=== PATIENT | female | born 2000 | race African-American/Black ===

== ENCOUNTER 2021-03-16 16:13 | Day surgery (SDC) | payer OTHER ==
[2021-03-16 17:08] VITALS: BMI 53.0
[2021-03-16 20:20] LABS: Creatinine, Urine 310.62 mg/dL (47-110)
[2021-03-16 20:43] LABS: #Eosinphils 0.2 10x3/uL (0.0-0.5); #Monocytes 0.8 10x3/uL (0.0-1.1); %Basophils 0.2 % (0.0-2.0); %Eosinophils 2.2 % (0.0-6.0); %Lymphocytes 20.1 % (18.0-47.0); %Monocytes 9.2 % (0.0-10.0); %Neutrophils 67.5 % (40.0-75.0); Hemoglobin 11.4 g/dL (12.0-15.5); Mean Corpuscular HGB CONC 32.2 g/dL (32.0-36.0); Mean Corpuscular Hemoglobin 27.2 pg (27.0-33.0); Mean Corpuscular Volume 84.5 fl (81.6-98.3); Mean Platelet Volume 11.1 fl (7.4-10.4); Platelet Count 183 10x3/uL (150-450); RBC Distribution Width 14.6 % (11.5-14.5); Red Blood Cell (RBC) Count 4.19 10x6/uL (3.90-5.03); White Blood Cell (WBC) Count 8.9 10x3/uL (3.5-10.5)
[2021-03-16 20:57] LABS: ALT (SGPT) 7 U/L (8-55); AST (SGOT) 11 U/L (5-34); Alkaline Phosphatase 107 U/L (40-100); Anion Gap 13 mmol/L (10-20); BUN (Urea Nitrogen) 9 mg/dL (7.0-18.7); Bilirubin, Total 0.2 mg/dL (0.2-1.2); Calc. Creatinine Clearance 320 mL/min (70-130); Carbon Dioxide 21 mmol/L (22-29); Chloride 106 mmol/L (98-107); Globulin 3.7 g/dL (2.4-3.5); Glucose 89 mg/dL (70-105); Potassium 3.8 mmol/L (3.5-5.1); Protein, Total 6.7 g/dL (6.0-8.3); Sodium 136 mmol/L (136-145)
[2021-03-16 21:27] LABS: Calcium 9.8 mg/dL (7.8-10.44)
== END 2021-03-16 21:07 | disposition home or self-care (01) ==
LOC: CSHLD/OP 16:13
PROVIDERS: ATTEND Obstetrics & Gynecology
DX: Z01.89 Encounter for other specified special examinations (principal); Z3A.00 Weeks of gestation of pregnancy not specified
CPT/HCPCS: 76819; 80053; 82570; 84156; 85025; 99283

== ENCOUNTER 2022-10-21 23:40 | Inpatient (IN) | payer OTHER ==
[~2022-10-21 23:40] MED LIST: Bupivacaine 0.25% HCL 30 ML VIAL ONE; Bupivacaine HCl 0.5%/Epinephrine 1:200,000/PF 30 ml Vial ONE; Bupivacaine/Epinephrine 0.25% 30 ML VIAL ONE; Lidocaine 2% MPF 10 ML AMP (For Epidural Use) ONE; ePHEDrine Sulfate 50 MG/10 ML VIAL ONE
[2022-10-22] MEDS ORDERED: Butorphanol Tartrate 1 MG/ML VIAL SLOW IVP PRN
[2022-10-22] MEDS ORDERED: Misoprostol 200 MCG TAB PR PRN
[2022-10-22] MEDS ORDERED: NS w/ Oxytocin 30 units 500 ML IV SCH
[2022-10-22] MEDS ORDERED: Lactated Ringer's 1,000 ML IV SCH
[2022-10-22] MEDS ORDERED: Acetaminophen 500 MG TAB PO PRN
[2022-10-22] MEDS ORDERED: Carboprost 250 MCG/ML AMP IM PRN
[2022-10-22] MEDS ORDERED: Diphenoxylate HCl/Atropine Tablet PO PRN
[2022-10-22] MEDS ORDERED: HYDROcodone/Acetaminophen 5/325 mg Tablet PO PRN ×2 (00:09→08:12)
[2022-10-22] MEDS ORDERED: Lidocaine 1% (PF) 30 ML VIAL SC PRN (00:09)
[2022-10-22] MEDS ORDERED: Ibuprofen 800 MG TAB PO PRN (00:09)
[2022-10-22] MEDS ORDERED: Penicillin G Potassium 5 MILL.UNITS in Sodium Chloride 0.9% 100 ML IVPB SCH (00:15)
[2022-10-22] MEDS ORDERED: Penicillin G Potassium 5 MILL.UNITS VIAL ONE (00:17)
[2022-10-22 00:25] VITALS: BMI 51.8
[2022-10-22 01:15] LABS: #Eosinphils 0.1 10x3/uL (0.0-0.5); #Monocytes 0.9 10x3/uL (0.0-1.1); %Basophils 0.2 % (0.0-2.0); %Eosinophils 1.5 % (0.0-6.0); %Lymphocytes 21.7 % (18.0-47.0); %Monocytes 10.3 % (0.0-10.0); %Neutrophils 65.5 % (40.0-75.0); Hemoglobin 10.9 g/dL (12.0-15.5); Mean Corpuscular HGB CONC 32.3 g/dL (32.0-36.0); Mean Corpuscular Hemoglobin 26.9 pg (27.0-33.0); Mean Corpuscular Volume 83.2 fl (81.6-98.3); Mean Platelet Volume 11.2 fl (7.4-10.4); Platelet Count 191 10x3/uL (150-450); RBC Distribution Width 15.6 % (11.5-14.5); Red Blood Cell (RBC) Count 4.05 10x6/uL (3.90-5.03); White Blood Cell (WBC) Count 9.2 10x3/uL (3.5-10.5)
[2022-10-22] MEDS ORDERED: Fentanyl 2 mcg/Bup 0.1% Cadd 100 ML ONE (01:21)
[2022-10-22 01:29] LABS: ALT (SGPT) Less than 6 U/L (8-55); AST (SGOT) 12 U/L (5-34); Albumin 3.2 g/dL (3.5-5.0); Alkaline Phosphatase 208 U/L (40-110); Anion Gap 15 mmol/L (10-20); BUN (Urea Nitrogen) 10 mg/dL (7.0-18.7); Bilirubin, Total 0.3 mg/dL (0.2-1.2); Calc. Creatinine Clearance 283 mL/min (70-130); Carbon Dioxide 20 mmol/L (22-29); Chloride 105 mmol/L (98-107); Estimated GFR 127; Globulin 3.5 g/dL (2.4-3.5); Glucose 92 mg/dL (70-105); Potassium 3.9 mmol/L (3.5-5.1); Protein, Total 6.7 g/dL (6.0-8.3); Sodium 136 mmol/L (136-145)
[2022-10-22 01:52] LABS: Syphilis Antibody Nonreactive (Nonreactive); Syphilis Antibody Index 0.05 S/CO (<1.00 Non-Reactive)
[2022-10-22 01:53] LABS: Hep B Surf Ag - L&D Non-Reactive S/CO (NonReactive)
[2022-10-22] MEDS ORDERED: Lactated Ringer's 500 ML IV PRN (02:21)
[2022-10-22] MEDS ORDERED: Ondansetron PF 4 MG/2 ML Vial IVP PRN ×3 (02:21→07:59)
[2022-10-22] MEDS ORDERED: Naloxone HCl 0.4 mg/ml Vial IVP PRN ×4 (02:21→07:59)
[2022-10-22] MEDS ORDERED: Moisturizing Cream (Eucerin) 113 GM JAR TOP PRN ×2 (02:21→07:59)
[2022-10-22] MEDS ORDERED: ePHEDrine Sulfate 50 MG/10 ML VIAL SLOW IVP PRN (02:21)
[2022-10-22] MEDS ORDERED: Promethazine HCl 25 MG/ML VIAL IM PRN ×3 (02:21→07:59)
[2022-10-22] MEDS ORDERED: diphenhydrAMINE 50 MG/ML VIAL IVP PRN ×2 (02:21→07:59)
[2022-10-22] MEDS ORDERED: Acetaminophen 325 MG TAB PO PRN (02:21)
[2022-10-22] MEDS ORDERED: Fentanyl 2 mcg/Bupivacaine 0.1% Cassette 100 ML EPIDURAL SCH (02:30)
[2022-10-22] MEDS ORDERED: Communication Order-Pharmacy FS SCH ×2 (02:30→08:00)
[2022-10-22] MEDS ORDERED: Penicillin G 2.5 MILL.units 2.5 MILL.UNITS in Premix Bag 1 BAG IVPB SCH (04:15)
[2022-10-22] MEDS ORDERED: Famotidine/PF 20 mg/2ml Vial SLOW IVP PRN (05:32)
[2022-10-22] MEDS ORDERED: Bicitra 30 ML UDCUP PO PRN (05:32)
[2022-10-22] MEDS ORDERED: CEFAZOLIN 2 GM VIAL ONE (05:35)
[2022-10-22] MEDS ORDERED: Azithromycin 500 MG VIAL ONE (05:35)
[2022-10-22] MEDS ORDERED: Azithromycin 500 MG in Sodium Chloride 0.9% 250 ML 250 ML IVPB SCH (05:45)
[2022-10-22] MEDS ORDERED: CEFAZOLIN 2 GM in Sodium Chloride 0.9% 100 ML IVPB SCH (05:45)
[2022-10-22] MEDS ORDERED: Morphine PF 10 MG/10 ML VIAL ONE (05:55)
[2022-10-22] MEDS ORDERED: PHENYLEPHRINE-NS 100 MCG/ML 10 ML SYRINGE ONE (05:55)
[2022-10-22] MEDS ORDERED: Ondansetron PF 4 MG/2 ML Vial ONE (05:55)
[2022-10-22] MEDS ORDERED: Oxytocin 10 UNITS/ML VIAL ONE (05:55)
[2022-10-22] MEDS ORDERED: Dexamethasone 4 mg/ml Vial ONE (05:55)
[2022-10-22 06:44] LABS: RapidComm Collect By CBN
[2022-10-22 06:46] LABS: RapidComm Collect By CBN; pH (Cord, venous) 7.289 (7.250-7.350)
[2022-10-22] MEDS ORDERED: Ketorolac Tromethamine 30 MG/ML VIAL IVP PRN (07:59)
[2022-10-22] MEDS ORDERED: Naloxone HCl 0.4 mg/ml Vial IV PRN (07:59)
[2022-10-22] MEDS ORDERED: Fentanyl 100 MCG/2 ML VIAL SLOW IVP PRN (07:59)
[2022-10-22] MEDS ORDERED: Ondansetron HCl/PF 4 MG/2 ML Vial IVP PRN (07:59)
[2022-10-22] MEDS ORDERED: Promethazine HCl 25 MG SUPP PR PRN (07:59)
[2022-10-22] MEDS ORDERED: Meperidine HCl/PF 25 MG/ML VIAL SLOW IVP PRN (07:59)
[2022-10-22] MEDS ORDERED: Ketorolac Tromethamine 30 MG/ML VIAL IVP SCH (08:00)
[2022-10-22] MEDS ORDERED: hydrALAZINE 20 MG/ML VIAL SLOW IVP PRN ×2 (08:12)
[2022-10-22] MEDS ORDERED: Boostrix 0.5 ML (Tdap) VIAL (>/=7 yrs of age) IM ONE (08:12)
[2022-10-22 10:52] LABS: Bilirubin Neg (Negative); Blood, Urine 250 (Negative); Clarity Slightly Cloudy (Clear); Glucose, Urine (Dipstick) Normal (Negative); Ketone, Urine 5 mg/dL (Negative); Leukocyte 100 (Negative); Nitrite Negative (Negative); Protein, Urine (Dipstick) Negative (Neg-Trace); Specific Gravity, Urine 1.005 (1.005-1.030); Urobilinogen Normal mg/dL (Less than 2)
[2022-10-22 11:00] LABS: Amphetamine Not Detected (NotDetected); Barbiturates Screen Not Detected (NotDetected); Benzodiazepine Screen Not Detected (NotDetected); Cocaine Metabolite Screen Not Detected (NotDetected); Methadone Not Detected (NotDetected); Methamphetamine Not Detected (NotDetected); Opiate Screen Detected (NotDetected); Oxycodone Screen Not Detected (NotDetected); Phencyclidine (PCP) Not Detected (NotDetected); THC/Cannabinoid Screen Not Detected (NotDetected); Tricyclic Screen Not Detected (NotDetected)
[2022-10-22 11:06] LABS: Bacteria/HPF Rare-Few HPF (None Seen); Squamous Epithelial 0-3 HPF (0-3)
[2022-10-22 13:27] LABS: HIV (1/2) Antibody/Antigen Non-Reactive (NonReactive); HIV 1/2 INDEX 0.15 S/CO (<1.00)
[2022-10-22] MEDS: Ibuprofen 800 MG TAB PO SCH ×2 (14:19→23:00)
[2022-10-22 23:05] LABS: Hep C IgG Ab Non-Reactive (NonReactive)
[2022-10-22 23:20] LABS: Hep C Index 0.11 S/CO (0-0.79)
[2022-10-23 04:18] LABS: Hemoglobin 9.3 g/dL (12.0-15.5); Mean Corpuscular HGB CONC 31.7 g/dL (32.0-36.0); Mean Corpuscular Hemoglobin 26.7 pg (27.0-33.0); Mean Corpuscular Volume 84.2 fl (81.6-98.3); Platelet Count 172 10x3/uL (150-450); RBC Distribution Width 15.3 % (11.5-14.5); Red Blood Cell (RBC) Count 3.48 10x6/uL (3.90-5.03); White Blood Cell (WBC) Count 14.3 10x3/uL (3.5-10.5)
[2022-10-23] MEDS: Ibuprofen 800 MG TAB PO SCH ×3 (05:46→22:20)
[2022-10-24] MEDS: Ibuprofen 800 MG TAB PO SCH ×3 (06:01→21:30)
[2022-10-24] MEDS: HYDROcodone/Acetaminophen 5/325 mg Tablet PO PRN (16:31)
[2022-10-25] MEDS: Ibuprofen 800 MG TAB PO SCH ×2 (05:04→13:41)
[2022-10-25] MEDS: HYDROcodone/Acetaminophen 5/325 mg Tablet PO PRN (05:17)
[2022-10-25 07:34] VITALS: BP 117/58; TEMP 98.5
== END 2022-10-25 17:20 | disposition home or self-care (01) | DRG 788 ==
LOC: UNDOADMIN 23:40 → CSHLD 23:40 → CSHPP 10-22 09:10
PROVIDERS: ADMIT Obstetrics & Gynecology; ATTEND Obstetrics & Gynecology
PROC: 10D00Z1 Extraction of Products of Conception, Low, Open Approach (ICD-10-PCS; principal; 2022-10-22)
DX: O99.214 Obesity complicating childbirth (principal); Z3A.39 39 weeks gestation of pregnancy; E66.9 Obesity, unspecified; O77.0 Labor and delivery complicated by meconium in amniotic fluid; O76 Abnormality in fetal heart rate and rhythm complicating labor and delivery; Z37.0 Single live birth
CPT/HCPCS: 36415; 51702; 76815; 80053; 80306; 81001; 82805; 85027; 86762; 86780; 86803; 86850; 86870; 86900; 86901; 87340; 87389; J1100; J1885; J2274; J2405; J2590; S0020

== ENCOUNTER 2024-02-10 12:59 | Inpatient (IN) | payer OTHER ==
[2024-02-10] MEDS ORDERED: Ondansetron PF 4 MG/2 ML Vial IVP PRN ×3 (13:12→15:12)
[2024-02-10] MEDS ORDERED: hydrALAZINE 20 MG/ML VIAL SLOW IVP PRN ×2 (13:12→18:06)
[2024-02-10] MEDS ORDERED: Promethazine HCl 25 MG/ML VIAL IM PRN ×2 (13:12→15:12)
[2024-02-10] MEDS ORDERED: Misoprostol 200 MCG TAB PR PRN ×2 (13:13→18:06)
[2024-02-10] MEDS ORDERED: Tranexamic Acid 1,000 MG/10 ML VIAL IVP PRN (13:13)
[2024-02-10] MEDS ORDERED: Oxytocin 30 units/NS 500 ML 500 ML IV SCH ×2 (13:15→18:06)
[2024-02-10] MEDS ORDERED: Acetaminophen 500 MG TAB PO PRN (13:32)
[2024-02-10] MEDS ORDERED: Carboprost 250 MCG/ML AMP IM PRN (13:32)
[2024-02-10] MEDS ORDERED: Bicitra 30 ML UDCUP PO PRN (13:32)
[2024-02-10] MEDS ORDERED: Diphenoxylate HCl/Atropine Tablet PO PRN (13:32)
[2024-02-10 14:06] VITALS: BMI 55.2
[2024-02-10] MEDS: Lactated Ringer's 1,000 ML IV SCH (14:41)
[2024-02-10] MEDS: CEFAZOLIN 3 GM, Admixture Fee 1 EACH in Sodium Chloride 0.9% 100 ML IVPB SCH (14:41)
[2024-02-10] MEDS: Famotidine/PF 20 mg/2ml Vial SLOW IVP PRN (14:41)
[2024-02-10 14:42] LABS: Hematocrit 37.4 % (34.9-44.5); Hemoglobin 12.5 g/dL (12.0-15.5); Mean Corpuscular HGB CONC 33.4 g/dL (32.0-36.0); Mean Corpuscular Hemoglobin 28.2 pg (27.0-33.0); Mean Corpuscular Volume 84.2 fL (81.6-98.3); Mean Platelet Volume 11.3 fL (7.4-10.4); Platelet Count 177 10x3/uL (150-450); RBC Distribution Width 15.1 % (11.5-14.5); Red Blood Cell (RBC) Count 4.44 10x6/uL (3.90-5.03)
[2024-02-10 14:50] LABS: ALT (SGPT) Less than 7 U/L (8-55); AST (SGOT) 12 U/L (5-34); Albumin 2.6 g/dL (3.5-5.0); Alkaline Phosphatase 178 U/L (40-110); Anion Gap 13 mmol/L (10-20); BUN (Urea Nitrogen) 10 mg/dL (7.0-18.7); Bilirubin, Total 0.3 mg/dL (0.2-1.2); Calc. Creatinine Clearance 252 mL/min (70-130); Calcium 9.6 mg/dL (7.8-10.44); Carbon Dioxide 22 mmol/L (22-29); Chloride 106 mmol/L (98-107); Estimated GFR 115; Globulin 4.4 g/dL (2.4-3.5); Glucose 92 mg/dL (70-105); Potassium 4.4 mmol/L (3.5-5.1); Sodium 137 mmol/L (136-145)
[2024-02-10 15:06] LABS: Amphetamine Not Detected (NotDetected); Barbiturates Screen Not Detected (NotDetected); Benzodiazepine Screen Not Detected (NotDetected); Cocaine Metabolite Screen Not Detected (NotDetected); Methadone Not Detected (NotDetected); Methamphetamine Not Detected (NotDetected); Opiate Screen Not Detected (NotDetected); Oxycodone Screen Not Detected (NotDetected); Phencyclidine (PCP) Not Detected (NotDetected); THC/Cannabinoid Screen Not Detected (NotDetected); Tricyclic Screen Not Detected (NotDetected)
[2024-02-10 15:08] LABS: HBsAg Index 0.17 S/CO (0-0.99); HIV (1/2) Antibody/Antigen Non-Reactive (NonReactive); HIV 1/2 INDEX 0.07 S/CO (<1.00); Hep B Surf Ag - L&D Non-Reactive S/CO (NonReactive); Syphilis Antibody Nonreactive (Nonreactive); Syphilis Antibody Index 0.08 S/CO (<1.00 Non-Reactive)
[2024-02-10] MEDS ORDERED: Morphine 4 MG/ML VIAL SLOW IVP PRN (15:12)
[2024-02-10] MEDS ORDERED: Naloxone HCl 0.4 mg/ml Vial IV PRN (15:12)
[2024-02-10] MEDS ORDERED: Meperidine HCl/PF 25 MG (1 mL) VIAL SLOW IVP PRN (15:12)
[2024-02-10] MEDS ORDERED: fentaNYL 50 mcg/mL 1 mL Vial SLOW IVP PRN (15:12)
[2024-02-10] MEDS ORDERED: Naloxone HCl 0.4 mg/ml Vial IVP PRN ×2 (15:12)
[2024-02-10] MEDS ORDERED: diphenhydrAMINE 50 MG/ML VIAL IVP PRN (15:12)
[2024-02-10] MEDS ORDERED: Moisturizing Cream (Eucerin) 113 GM JAR TOP PRN (15:12)
[2024-02-10] MEDS ORDERED: Ketorolac Tromethamine 30 MG (1 mL) VIAL IVP SCH (15:15)
[2024-02-10] MEDS ORDERED: Communication Order-Pharmacy FS SCH (15:15)
[2024-02-10 15:22] LABS: Creatinine, Urine 224.93 mg/dL (47-110)
[2024-02-10] MEDS: Dexamethasone 10 MG/ML VIAL ONE (18:04)
[2024-02-10] MEDS: Ketorolac Tromethamine 30 MG (1 mL) VIAL ONE (18:04)
[2024-02-10] MEDS: ePHEDrine Sulfate 50 MG/10 ML VIAL ONE (18:04)
[2024-02-10] MEDS: Glycopyrrolate 0.2 MG/ML 5 ML SYRINGE ONE (18:04)
[2024-02-10] MEDS: Morphine PF 10 MG/10 ML VIAL ONE (18:04)
[2024-02-10] MEDS: PHENYLEPHRINE-NS 100 MCG/ML 10 ML SYRINGE ONE (18:05)
[2024-02-10] MEDS: Ondansetron PF 4 MG/2 ML Vial ONE (18:05)
[2024-02-10] MEDS: Oxytocin 10 UNITS/ML VIAL ONE (18:05)
[2024-02-10] MEDS: Promethazine HCl 25 MG/ML VIAL ONE (18:05)
[2024-02-10] MEDS: Phenylephrine 40 MG/NS 250 ML 250 ML ONE (18:05)
[2024-02-10] MEDS ORDERED: Boostrix 0.5 ML (Tdap) VIAL (>/=7 yrs of age) IM ONE (18:06)
[2024-02-10] MEDS ORDERED: Acetaminophen 325 MG TAB PO PRN (18:06)
[2024-02-10] MEDS ORDERED: Bisacodyl 10 MG SUPP PR PRN (18:06)
[2024-02-10] MEDS ORDERED: Lanolin Ointment 7 GM TUBE TOP PRN (18:06)
[2024-02-10] MEDS ORDERED: diphenhydrAMINE 25 MG CAP PO PRN (18:06)
[2024-02-10] MEDS ORDERED: Simethicone Chewable 80 MG TAB PO PRN (18:06)
[2024-02-10 18:33] LABS: Hep C IgG Ab NONREACTIVE S/CO (NonReactive); Hep C Index 0.06 S/CO (0-0.79)
[2024-02-10] MEDS: Ketorolac Tromethamine 30 MG (1 mL) VIAL IVP PRN (22:30)
[2024-02-10 23:05] LABS: Chlam.trachomatis by PCR,Urine Not Detected (NotDetected); GC N.gonorrhoeae PCR,UrineVOID Not Detected (NotDetected)
[2024-02-11] MEDS ORDERED: HYDROcodone/Acetaminophen 5/325 mg Tablet PO PRN ×2 (03:15)
[2024-02-11] MEDS: Ferrous Sulfate 325 MG TAB PO SCH (05:43)
[2024-02-11] MEDS: Docusate 100 MG CAP PO SCH (05:43)
[2024-02-11 05:44] LABS: Hematocrit 31.7 % (34.9-44.5); Hemoglobin 10.4 g/dL (12.0-15.5); Mean Corpuscular HGB CONC 32.8 g/dL (32.0-36.0); Mean Corpuscular Hemoglobin 27.7 pg (27.0-33.0); Mean Corpuscular Volume 84.3 fL (81.6-98.3); Mean Platelet Volume 12.1 fL (7.4-10.4); Platelet Count 187 10x3/uL (150-450); Red Blood Cell (RBC) Count 3.76 10x6/uL (3.90-5.03); White Blood Cell (WBC) Count 14.5 10x3/uL (3.5-10.5)
[2024-02-11] MEDS: Prenatal Vitamin 1 TAB PO SCH (13:22)
[2024-02-11] MEDS: Ibuprofen 800 MG TAB PO SCH (22:56)
[2024-02-12] MEDS: metroNIDAZOLE 500 MG TAB PO SCH (15:31)
[2024-02-13 08:07] VITALS: BP 120/62; TEMP 98.6
[2024-02-13 10:26] LABS: Analyzer IN Cardio CS NICU; Critical Notified By: A. Sanchez; RapidComm Collect By cbn
[2024-02-13 10:28] LABS: Analyzer IN Cardio CS NICU; Critical Notified By: A. Sanchez; RapidComm Collect By cbn; pH (Cord, venous) 7.368 (7.250-7.350)
== END 2024-02-13 13:20 | disposition home or self-care (01) | DRG 788 ==
LOC: CSHLD/OP 12:59 → CSHLD 14:06 → CSHPP 18:39
PROVIDERS: ADMIT Obstetrics & Gynecology; ATTEND Obstetrics & Gynecology
PROC: 10D00Z1 Extraction of Products of Conception, Low, Open Approach (ICD-10-PCS; principal; 2024-02-10)
DX: O10.92 Unspecified pre-existing hypertension complicating childbirth (principal); Z3A.39 39 weeks gestation of pregnancy; Z37.0 Single live birth; O34.211 Maternal care for low transverse scar from previous cesarean delivery; O99.214 Obesity complicating childbirth; E66.01 Morbid (severe) obesity due to excess calories; Z79.899 Other long term (current) drug therapy
CPT/HCPCS: 36415; 51702; 76815; 80306; 82570; 82805; 84156; 85027; 86762; 86780; 86803; 86850; 86870; 86900; 86901; 86922; 87340; 87389; 87491; 87591; 87661; 99285; J1100; J1885; J2274; J2405; J2550; J2590; J3490; J7120; S0028